=== PATIENT | male | born 1985 | race Hispanic/Latino ===

== ENCOUNTER 2016-11-04 02:07 | Emergency (ER) | payer BC ==
[2016-11-04 02:29] VITALS: BP 131/72; PULSE 78; RESP 16; TEMP 98.7; O2SAT 100
--- NOTE | 2016-11-04 03:03 | ED PDOC ---
Lower Extremity Pain/Injury Time Seen by Provider: 11/04/16 02:45 Chief Complaint (Nursing): Hip Pain Chief Complaint (Provider): left leg pain History Per: Patient History/Exam Limitations: no limitations Onset/Duration Of Symptoms: Days (2 weeks) Current Symptoms Are (Timing): Still Present Additional History Per: Patient Additional Complaint(s): 31 y/o male history of lspine disc herniations presents with left leg pain x 2 weeks. Patient states since he was diagnosed with lspine disc herniations last year by MRI he hasn't been lifting too heavy at the gym, 2 weeks ago worked glutes/legs and woke up the next day with pain to left buttock that would "send shocks" down left leg. Patient notes improvement of shock symptoms, now notes "pain" to left buttock and left lateral thigh. He notes pain only upon positional change and weight bearing. Patient has been seen by massage therapists, ortho therapists in [place] and prescribed Naproxen which helps with pain but once medication wears off pain returns which prompted ED visit. Denies swelling to area, low back pain, numbness/weakness lower extremities, bowel/bladder incontinence, hematuria/discolored urine. Past Medical History Reviewed: Historical Data, Nursing Documentation, Vital Signs Vital Signs: Last Vital Signs Temp 98.7 F 11/04/16 02:26 Pulse 78 11/04/16 02:26 Resp 16 11/04/16 02:26 BP 131/72 11/04/16 02:26 Pulse Ox 100 11/04/16 02:26 - Medical History PMH: Back Problems - Surgical History Surgical History: No Surg Hx - Family History Family History: States: Unknown Family Hx - Social History Current smoker - smoking cessation education provided: Yes - Allergies Allergies/Adverse Reactions: Allergies Allergy/AdvReac Type Severity Reaction Status Date / Time shellfish derived Allergy RASH Verified 11/04/16 02:33 Review of Systems ROS Statement: Except As Marked, All Systems Reviewed And Found Negative Musculoskeletal: Positive for: Leg Pain Physical Exam - Reviewed Nursing Documentation Reviewed: Yes Vital Signs Reviewed: Yes - Physical Exam Appears: Positive for: Well, Non-toxic, No Acute Distress Head Exam: Positive for: ATRAUMATIC, NORMAL INSPECTION, NORMOCEPHALIC Skin: Positive for: Normal Color Extremity: Positive for: Normal ROM, Tenderness (left lower gluteus overlying ischium. Tenderness produced left lateral upper leg with flexion) - Laboratory Results Result Diagrams: 11/04/16 03:56 11/04/16 03:56 - ECG O2 Sat by Pulse Oximetry: 100 - Other Rad xray left hip X-Ray: Viewed By Me X-Ray Interpretation: no acute findings xray left femur X-Ray: Viewed By Me X-Ray Interpretation: no acute findings - Progress ED Course And Treament: xrays, labs, IV toradol, IV fluids ordered Patient educated on findings, discharged with instructions to follow up PMD 2-3 days. Advised to continue current medications. Return to ED for worsening/concerning symptoms. Disposition - Clinical Impression Clinical Impression: Muscle strain - Patient ED Disposition Is Patient to be Admitted: No Counseled Patient/Family Regarding: Studies Performed, Diagnosis, Need For Followup - Disposition Referrals: Juan Ramon Bowie MD [Primary Care Provider] - Disposition: Routine/Home Disposition Time: 04:16 Condition: IMPROVED Instructions: Muscle Strain (ED)
[2016-11-04] MEDS ORDERED: Sodium Chloride 0.9% 1,000 ML IV STA (03:49)
[2016-11-04 04:00] LABS: BASO # 0.1 K/uL (0.0-0.2); BASO % 0.8 % (0.0-2.0); EOS # 0.6 K/uL (0.0-0.7); EOS % 8.1 % (0.0-4.0); LYMPH # 2.3 K/uL (1.0-4.3); LYMPH % 31.9 % (20.0-40.0); MEAN CELL VOLUME 97.4 fl (80.0-94.0); MEAN CORPUSCULAR HEMOGLOBIN 33.5 pg (27.0-31.0); MEAN CORPUSCULAR HGB CONC 34.3 g/dL (33.0-37.0); MEAN PLATELET VOLUME 7.7 fl (7.2-11.7); MONO # 0.8 K/uL (0.0-0.8); MONO % 10.4 % (0.0-10.0); NEUT # 3.6 K/uL (1.8-7.0); NEUT % 48.8 % (50.0-75.0); RED CELL DISTRIBUTION WIDTH 12.5 % (11.5-14.5); WHITE BLOOD COUNT 7.3 K/uL (4.8-10.8)
[2016-11-04 04:05] LABS: CHLORIDE 101 mmol/L (98-107); SODIUM 142 mmol/l (132-148)
[2016-11-04 04:06] LABS: POTASSIUM 4.3 MMOL/L (3.6-5.0)
[2016-11-04 04:08] LABS: ALB/GLOB RATIO 1.6 (1.0-2.1); ALKALINE PHOSPHATASE 71 U/L (38-126); ALT/SGPT 32 U/L (21-72); AST/SGOT 24 U/L (17-59); BILIRUBIN,TOTAL 0.5 mg/dl (0.2-1.3); BLOOD UREA NITROGEN 30 mg/dl (9-20); CALCIUM 9.4 mg/dL (8.4-10.2); CARBON DIOXIDE 31 mmol/L (22-30); GFR AFRICAN-AMERICAN > 60; GLUCOSE,RANDOM 99 mg/dL (75-110); TOTAL PROTEIN 7.5 G/DL (6.3-8.2)
--- NOTE | 2016-11-04 10:13 | RAD ---
PROCEDURE: Left femur dated 11/04/2016 HISTORY: injury, lateral pain COMPARISON: TECHNIQUE: AP and lateral views of the left femur performed of. Correlation made with concurrent radiographs of the pelvis and left hip. FINDINGS: The current study reveals no evidence of acute displaced fracture nor dislocation. Left femoral head is appropriately located within the left acetabulum. The osseous structures appear intact of. No cortical destructive changes. Soft tissues unremarkable. . IMPRESSION: No acute displaced fracture nor dislocation.
--- NOTE | 2016-11-04 10:15 | RAD ---
PROCEDURE: Pelvis left hip dated 11/04/2016 HISTORY: injury, pain COMPARISON: Correlation made with concurrent radiographs of the left femur FINDINGS: BONES: Normal. No fracture. JOINTS: Joint spaces preserved however note made of mild productive changes - osteophyte formation of the superolateral margins of the acetabular roofs left slightly more exuberant than the right. SOFT TISSUES: Normal. OTHER FINDINGS: Note made of moderate amount of stool seen within the colon consistent with mild constipation. IMPRESSION: No evidence of acute displaced fracture nor dislocation. Mild productive changes/ at osteophyte formation arising from the superolateral margins of the acetabular roofs left more exuberant than right.
== END 2016-11-04 05:05 | disposition home or self-care (01) ==
LOC: H.ER 02:07
DX: M25.552 Pain in left hip (principal); M79.605 Pain in left leg
CPT/HCPCS: 73502; 73552; 80053; 82550; 85025; 99283; J1885; J7040